=== PATIENT | male | born 1990 | race African-American/Black ===

== ENCOUNTER 2017-01-15 03:00 | Emergency (ER) | payer SELFPAY ==
[~2017-01-15] VITALS: Ht 167.6 cm; Wt 81.6 kg
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
--- NOTE | 2017-01-15 05:04 | NUR ---
XR AT BEDSIDE.
[2017-01-15] MEDS ORDERED: oxyCODONE/APAP (5/325 MG) 1 UDTAB TABLET PO ONE (06:00)
[2017-01-15] MEDS ORDERED: oxyCODONE/APAP (5/325 MG) 1 UDTAB TABLET ONE (06:04)
[2017-01-15 07:01] VITALS: BP 134/78
--- NOTE | 2017-01-15 07:02 | NUR ---
Patient discharged to home in stable condition. Written and verbal after care instructions given. Patient verbalizes understanding of instruction. Patient is ambulatory with steady gait, no further complaints.
== END 2017-01-15 07:24 | disposition home or self-care (01) ==
LOC: ER 03:02
DX: S22.32XA Fracture of one rib, left side, initial encounter for closed fracture (principal); S00.83XA Contusion of other part of head, initial encounter; S80.12XA Contusion of left lower leg, initial encounter; V43.52XA Car driver injured in collision with other type car in traffic accident, initial encounter; Y93.89 Activity, other specified; Y92.89 Other specified places as the place of occurrence of the external cause; Y99.9 Unspecified external cause status
CPT/HCPCS: 71010-TC; 73552; 73590-TC; A4606; Z7610

== ENCOUNTER 2017-01-16 19:18 | Emergency (ER) | payer SELFPAY ==
[~2017-01-16] VITALS: Ht 167.6 cm; Wt 68.0 kg
[2017-01-16 20:08] VITALS: BP 148/82
== END 2017-01-16 22:56 | disposition home or self-care (01) ==
LOC: ER 19:21
DX: S20.212A Contusion of left front wall of thorax, initial encounter (principal); V49.49XA Driver injured in collision with other motor vehicles in traffic accident, initial encounter; Y93.89 Activity, other specified; Y92.89 Other specified places as the place of occurrence of the external cause; Y99.9 Unspecified external cause status
CPT/HCPCS: A4606; Z7610